=== PATIENT | female | born 1985 | race Caucasian/White ===

== ENCOUNTER 2018-07-11 09:34 | Emergency (ER) | payer OTHER ==
[2018-07-11 09:46] VITALS: BP 125/76
--- NOTE | 2018-07-11 10:13 | EDPHY ---
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 Dog had all his immunizations including rabies. She complains of soreness in shooting pain in her forearm from the site of the bite down to her hand. She denies any numbness tingling or electric sensations. She denies any other pain or injury. Her tetanus is up-to-date. REVIEW OF SYSTEMS: As in HPI, and all other systems reviewed and are negative Smoking Status: Never smoked Physical Exam: General Appearance: Alert and no distress. Head: Normocephalic, atraumatic Eyes: Pupils equal and round no injection. Extraocular movements are intact. Musculoskeletal: Neck is supple and nontender. Extremities: Left forearm with 0.5 x 0.5 puncture wound to ulnar side of dorsum of her proximal forearm, positive redness and contusion on volar surface of forearm, he has full range of motion of left elbow wrist and fingers, radial , median and ulnar nerve function intact, radial pulses 2+ and equal to the right, distal sensation is intact, positive tenderness around the site of the bite and contusion. Skin: No rashes or lesions except as described above. 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 Wound was anesthetized with 1% lidocaine with epinephrine and irrigated with normal saline. Given the location on the forearm we will not close the wound. Patient was given prophylactic antibiotics. We discussed signs symptoms of infection return precautions. - Depart Disposition: Home, Routine, Self-Care Clinical Impression: Dog bite Qualifiers: Encounter type: initial encounter Qualified Code(s): W54.0XXA - Bitten by dog, initial encounter Condition: Good Instructions: Animal Bite (ED) Additional Instructions: You were seen by Dr. Peggy Quiñonez today. Please take antibiotics as prescribed. I recommend taking probiotics in between doses of antibiotics. Wash the wound at least twice daily with soap and water. It is safe to shower. Keep it covered. Return for any worsening or new concerns, including but not limited to increased pain, redness, draining pus, red streaking or fever. Prescriptions: Amoxicillin/Clavulanate Pot [Augmentin 875 MG TAB (*)] 875 mg PO BID #14 tab Referrals: NONE *PRIMARY CARE P,. [Primary Care Provider] - As per Instructions
== END 2018-07-11 10:20 | disposition home or self-care (01) ==
LOC: CED 09:34
DX: S51.852A Open bite of left forearm, initial encounter (principal); W54.0XXA Bitten by dog, initial encounter; Y92.238 Other place in hospital as the place of occurrence of the external cause; Y93.K9 Activity, other involving animal care; Y99.0 Civilian activity done for income or pay